=== PATIENT | female | born 1965 | race Caucasian/White ===

== ENCOUNTER 2018-03-19 08:37 | Observation (INO) ==
--- NOTE | 2018-03-12 10:38 | MH ---
cc: Ines Tinsley MD DATE OF ADMISSION: 03/19/2018 ATTENDING PHYSICIAN: Ines Tinsley MD PRINCIPAL DIAGNOSIS: Right breast cancer. HISTORY OF PRESENT ILLNESS: The patient is a 52-year-old female referred by Dr. Bennett for a newly diagnosed multifocal right breast cancer. This was initially noted on a screening mammogram 12/16/2017 at [place] where a density in the upper outer right breast was identified. This was confirmed with a diagnostic right breast mammogram and ultrasound on 12/26/2017. In the 10 o'clock location, 4 cm from the nipple, there was a 1 cm hypoechoic BI-RADS 4 nodule and in the 12 o'clock location, 4 cm from the nipple, there was a 1.5 x 1 cm hypoechoic BI-RADS 4 nodule. Ultrasound-guided core biopsy of both lesions on 01/14/2018 demonstrated well-differentiated invasive ductal carcinoma, and she has opted for bilateral mastectomy with immediate reconstruction. PAST MEDICAL HISTORY: She has no medical problems. PAST SURGICAL HISTORY: Prior surgery included back surgery in 2007 and an open right breast biopsy in 2010. MEDICATIONS: Include Citalopram 20 mg daily. ALLERGIES: SHE HAS NO DRUG ALLERGIES. REPRODUCTIVE HISTORY: G0, P0. Menarche age 13. She continues to menstruate. She does not take hormone replacement therapy. FAMILY HISTORY: Significant for a maternal great aunt who had breast cancer at age 89. SOCIAL HISTORY: She smoked 1 pack of cigarettes daily for approximately 30 years but stopped 1 year ago. REVIEW OF SYSTEMS: A 12-point review of systems is unremarkable. PHYSICAL EXAMINATION: GENERAL: She was 5 feet 7 and weighed 193 pounds with a BMI of 30. Blood pressure was 112/80, temperature 98, heart rate 61, respirations 16. HEENT: Unremarkable. NECK: Supple with no adenopathy or thyromegaly. CHEST: Clear throughout. CARDIAC: Revealed a normal S1 and S2, with no murmurs, rubs or gallops. BREASTS: Revealed asymmetry with the right breast being larger than the left. There were no palpable masses and there was a 3 o'clock right periareolar scar. ABDOMEN: Soft and nontender with no masses. The remainder of her exam was unremarkable. IMPRESSION: Ms. Byrnes has a clinical stage I multifocal right breast cancer and has opted for bilateral mastectomy with immediate reconstruction. She will also require a right axillary sentinel lymph node biopsy to complete staging. She understands the risks and benefits of the procedure and has agreed to proceed. MD SUREKHA Cruz/patricio , 10:20 AM , 10:29 AM
[2018-03-19] MEDS ORDERED: Sodium Chlor 0.9% Inj 500 ML IV.SIG SCH (09:00)
[2018-03-19] MEDS ORDERED: Metoprolol Tartrate 25 MG Tablet PO ONE (09:00)
[2018-03-19] MEDS ORDERED: Chlorhexidine Gluconate 2% 1 Pack (2 Cloths) TOPICAL ONE (09:00)
[2018-03-19] MEDS ORDERED: ceFAZolin 2 GM Premix Inj 2 GM/50 ML PIGGYBACK IV.SIG PRN (09:03)
[2018-03-19] MEDS ORDERED: Bupivacaine/Epinephrine PF Inj 0.5% 30 ML Vial ONE ×2 (10:38→10:40)
[2018-03-19] MEDS ORDERED: Bupivacaine PF 0.5% Inj 30 ML Vial ONE (10:39)
[2018-03-19] MEDS ORDERED: Bupivacaine PF 0.25% Inj 30 ML Vial ONE (10:40)
[2018-03-19] MEDS ORDERED: Lidocaine PF 1% Inj 5 ML Syringe INFILTRATN ONE (12:06)
[2018-03-19] MEDS ORDERED: fentaNYL Citrate Inj 100 MCG/2 ML Ampul ONE (12:17)
--- NOTE | 2018-03-19 14:06 | MP ---
cc: Ines Tinsley MD DATE OF OPERATION: 03/19/2018 DATE OF SURGERY: 03/19/2018 PRINCIPAL DIAGNOSIS:. Right breast cancer, multifocal. PROCEDURE PERFORMED: Bilateral nipple-sparing mastectomy with right axillary sentinel lymph node biopsy and bilateral breast reconstruction. SURGEONS: Dr. Ines Tinsley and Dr. Rogers Connors. ANESTHESIA: General endotracheal. INDICATIONS: The patient is a 52-year-old female with recently diagnosed multifocal right breast cancer. She has opted for bilateral mastectomy with immediate reconstruction and now presents for the procedure. Her lesions are at least 4 cm from the nipple and a nipple-sparing approach was chosen. FINDINGS AT THE TIME OF SURGERY: Two sentinel lymph nodes were identified; #1 had a count of 2752 and #2 had a count of 448. Touch prep was not performed. DESCRIPTION OF PROCEDURE: After informed consent was obtained, and site verification was performed, the patient was brought to the radiology suite where she underwent peritumoral radionucleotide injection and lymphoscintigraphy. She was then brought to the major operating room where she underwent general anesthesia via an LMA device. Both breasts and the right arm were then prepped and draped in sterile fashion. She was given a single dose of IV Ancef and sequential compression hose were placed. Inframammary incisions were marked out and 200 mL of tumescent solution mixed with 30 mL of 0.5% Marcaine with epinephrine were then infiltrated in the plane between the subcutaneous fat and anterior breast fascia circumferentially around both breasts. Approximately 200 mL of solution was used in each breast. The inframammary crease incision was then sharply incised and further sharp dissection was performed in the plane between the anterior breast fascia and subcutaneous fat medially and laterally up to the level of the nipple. Electrocautery was then used to dissect the breast tissue and pectoralis fascia off the pectoralis major muscle up to the level of the clavicle. Further sharp dissection was then performed around the nipple and a small specimen was removed from the undersurface of the nipple and marked with a stitch and this was sent as the new nipple margin as a permanent specimen. Further sharp dissection was then performed medially and laterally in the superior portion of the breast between the anterior breast fascia and subcutaneous fat. The breast was then removed and oriented with 2 sutures anteriorly, 1 short suture superiorly, and 1 long suture laterally. The breast was weighed off the field and sent as a permanent specimen. The upper medial and lateral flaps did contain some additional breast tissue and this was sharply dissected free from the subcutaneous tissue and a stitch was placed on the new margin and these were sent as permanent superior inner and superior lateral specimens. Good hemostasis was obtained with electrocautery. A separate incision was anesthetized at the inferior aspect of the right axillary hairline and this was incised sharply. Both sharp and electrocautery dissection were then performed until the clavipectoral fascia was divided and the level 1 axilla was entered. Two mid level lymph nodes were identified close to the chest wall and each was circumferentially dissected free from surrounding structures using the Harmonic scalpel with the counts as noted. Some adjacent axillary tissue was sent as a permanent specimen. Good hemostasis was noted in the axilla and the wound was closed using interrupted 3-0 Vicryl subcutaneous sutures and a 4-0 Monocryl subcuticular suture. The background count in the axilla was 7. Reconstruction was then performed by Dr. Connors and will be recorded on a separate dictation. MD SUREKHA Cruz/anabela , 01:46 PM , 01:55 PM
[2018-03-19] MEDS ORDERED: Morphine Sulfate Inj 8 MG/ML Vial ONE (15:22)
[2018-03-19] MEDS ORDERED: HYDROmorphone PF Inj 2 MG/ML Vial ONE (15:40)
--- NOTE | 2018-03-19 15:42 | P.OP ---
Preoperative Diagnosis: Right Breast cancer Postoperative Diagnosis: Right Breast cancer Date of procedure: 03/19/18 Procedure: 1 Right Nipple sparing mastectomy and Lymph node sampling - by Dr. Tinsley 2 Left Nipple sparing mastectomy - by Dr. Connors 3 Bilateral Breast reconstruction with Tissue Expanders and Allomax grafts - by Dr. Connors Implants: Allergan Tissue Expanders [id number] (nominal capacity 400 cc)- RIght side SN [id number], Left side [id number] Allomax tissue grafts 8x16 cm, [id number] Right side SN [id number], Left side SN [id number] Anesthesia: GETA Surgeon: Rogers Connors MD Estimated blood loss (mL): 50 Operation and Findings: Indications: Right breast cancer - patient desiring bilateral mastectomies - nipple sparing or areola sparing and immediate tissue gas check pad maker stage I reconstruction. Patient has undergone extensive discussion about recon options and pros, cons, risks, possible complications including the [facility] informed consent brochure. She is willing to go ahead with tissue gas check pad maker and Allomax immediate recon on both sides. Does not want any muscle flaps or autologous recon at this time. She understands that there are risks of bleeding, hematoma, seroma, flap necrosis, wound healing problems, wound dehiscence, infection, loss of reconstruction prosthesis if there is infection or exposure and multiple future surgeries or other interventions may be necessary. There may be asymmetry between two sides due to multiple factors, there may be loss of reconstruction on one side or both sides. Future reconstruction efforts may depend upon the tissue and health status in future - including any radiation therapy, chemotherapy etc. There may be lymphatic blockage / lymphedema on one or both sides. Chronic pain, scarring, uneven surface appearances, reduced / restricted function of her chest wall muscles etc. Flap numbness and variations of thickness / vascularity possible and may persist. Hypertrophic scar, keloid formation etc possible. Other possible general risks including those with anesthesia, medications, smoking and other medical issues also accepted by patient. Second stage recon with implants explained for future, expanders and implants shown, both saline, silicone, smooth, textured - also round, tear drops, different profiles and sizes explained. Patient also was shown previous patients' photos for comparison and understanding various differences and outcomes etc. She is willing to go ahead with the stage I tissue gas check pad maker and Allomax reconstruction. Procedure: Preoperative markings of patient's existing IMF was done in holding area, the surgery for Right breast is possible to be nipple sparing as per Dr. Tinsley and the Left prophylactic side also is Nipple sparing. Patient was brought to the OR, anesthesia started, time out completed , prep and drape done, antibiotics given. Right side surgery will be dictated by Dr. Tinsley for her part. Left side breast was injected with tumescent mix of 30 cc Bupivacaine in 250 cc Saline - total 240 cc used through surgery. Inframammary crease incision approx 4 1/2 inches long made - flap elevated in fatty plane up to the nipple base, nipple saved and base dissected sharply - a sample of tissue taken for permanent section exam, nipple position suture marked on the breast tissue, flap dissection completed over the entire breast mound. Minimal bleeding encountered. Breast lower pole lifted off the IMF and dissected up - exposing the pectoralis muscle borders and intercostal space clearly. Tumescent mix used between the breast base and pectoralis fascia. Dissection continued, preserving the pectoralis fascia and releasing the breast mound along the borders. Breast tissue specimen also suture marked at superior 12 o'clock position. Tissue weight 515 grams. (The right side specimen weighed 335 grams.) Hemostasis completed and the breast pockets and chest wall flaps irrigated and washed clean with saline on both sides. Subpectoral pockets created for expanders. releasing the lower lateral border of the pectoralis, preserving the most medial aspects and inframammary fold position. Allomax tissue grafts hydrated, treated with Gentamicin and sutured in position, smooth side down, to the anterior axillary line and IMF levels and rounding off the outer lower corners. Allomax grafts also fenestrated in lower half to allow drainage. Trefisan tissue expanders 400cc nominal volumes used - rinsed and treated with gentamicin as well. Air evacuated and expanders placed in the subpectoral position, Allomax free edges tacked to the lateral border of pectoralis muscles over the expanders. Expanders filled with sterile saline using a three way no touch technic. Final fill 300 cc on each side. Camp Counselor position and projection were fairly well matched. MARIA VICTORIA drains inserted through separate stab incisions, Breast flaps smoothed over the expanders and closed in two layers - vicryls and prolene. Drain tubes secured with Nylon sutures. Drains activated with the breast flaps being adjusted for position over the expanders. Flap color remained uniformly good on both sides, minimal bruising noted at the end of surgery. Sterile dressing applied after clean up. Intraoperative blood loss less than 15-20 cc for the Left mastectomy and bilateral recon part, overall blood loss less than 50 cc estimated. Patient remained stable. No complications.
[2018-03-19] MEDS: HYDROmorphone PF Inj 2 MG/ML Vial IV.PUSH PRN ×2 (18:33→23:04)
[2018-03-19] MEDS ORDERED: LORazepam 0.5 MG Tablet PO PRN (18:56)
[2018-03-20] MEDS: HYDROmorphone PF Inj 2 MG/ML Vial IV.PUSH PRN ×4 (03:15→16:19)
[2018-03-20] MEDS: Citalopram 20 MG Tablet PO SCH (08:08)
--- NOTE | 2018-03-20 09:14 | P.PNPLA ---
Subjective Remarks: Patient doing well post op - no fever, vitals good has not been out of bed yet Pain moderate, ok with dilaudid Breast flaps soft, no hematoma, minimal bruising, no blisters, drains ok. To plan DC today when seen by Dr. Tinsley. Will see patient back in clinic on Saturday next week. Rx Dilaudid and Keflex. No need to change dressing at home. Keep dry. Objective Vital Signs: Vital Signs - 24 hr 03/19/18 09:37 03/19/18 15:03 03/19/18 15:20 Temperature 97.8 F 98.3 F Pulse Rate 60 78 73 Respiratory Rate 15 14 15 Blood Pressure 113/81 135/82 124/82 Pulse Oximetry 96 100 03/19/18 15:35 03/19/18 16:18 03/19/18 16:55 Temperature 98.1 F Pulse Rate 74 83 Respiratory Rate 16 15 16 Blood Pressure 122/82 127/88 Pulse Oximetry 100 100 03/19/18 17:57 03/19/18 20:00 03/20/18 00:00 Temperature 96.2 F L 98.1 F 97.7 F Pulse Rate 80 83 78 Respiratory Rate 20 20 20 Blood Pressure 125/81 129/80 116/70 Pulse Oximetry 100 99 97 03/20/18 03:14 03/20/18 04:00 Temperature 96.9 F L Pulse Rate 71 Respiratory Rate 6 L 20 Blood Pressure 117/88 Pulse Oximetry 100 Intake & Output 03/18/18 03/19/18 03/20/18 03/21/18 06:59 06:59 06:59 06:59 Intake Total 4110 / 4110 Output Total 860 / 860 Balance 3250 / 3250 Weight 91.1 kg
--- NOTE | 2018-03-20 16:44 | P.PN ---
Subjective Interval history: Resting but still significant issue with pain control requiring IV dilaudid. Physical Exam Vital signs: Vital Signs 03/19/18 16:55 03/19/18 17:57 03/19/18 20:00 Temperature 98.1 F 96.2 F L 98.1 F Pulse Rate 83 80 83 Respiratory Rate 16 20 20 Blood Pressure 127/88 125/81 129/80 Pulse Oximetry 100 100 99 03/20/18 00:00 03/20/18 03:14 03/20/18 04:00 Temperature 97.7 F 96.9 F L Pulse Rate 78 71 Respiratory Rate 20 6 L 20 Blood Pressure 116/70 117/88 Pulse Oximetry 97 100 03/20/18 08:00 03/20/18 12:00 Temperature 97.4 F L 97.7 F Pulse Rate 70 70 Respiratory Rate 20 20 Blood Pressure 125/76 141/72 H Pulse Oximetry 99 Intake & Output 03/19/18 03/20/18 03/20/18 18:59 06:59 18:59 Intake Total 3450 / 3450 660 / 660 Output Total 770 / 770 90 / 90 45 / 45 Balance 2680 / 2680 570 / 570 -45 / -45 Weight 91.2 kg 91.1 kg Intake: IV 1650 / 1650 Ofirmev Inj 1,000 mg In 100 ml 100 / 100 @ 0 mls/hr IV.SIG .STK-MED ONE Rx#:[id number] LR 1000 mL Inj 1,000 ML @ 30 1000 / 1000 mls/hr IV.SIG .Q24H [facility] Rx#: [id number] NS Inj 500 ML @ 30 mls/hr IV. 500 / 500 SIG .Q10H [facility] Rx#:[id number] Ancef 2 GM Premix Inj 2 gm In 50 / 50 50 ml @ 100 mls/hr IV.SIG [employer] PRN Rx#:[id number] Oral 660 / 660 Anesthesia Amount 1800 / 1800 Output: Estimated Blood Loss 50 / 50 Urine Amount (Catheter) 600 / 600 Indwelling Urethral Catheter 600 / 600 Wound Drainage 120 / 120 90 / 90 45 / 45 # 1 Right Breast MARIA VICTORIA Drain 80 / 80 50 / 50 30 / 30 Left Breast MARIA VICTORIA Drain 40 / 40 40 / 40 15 / 15 Other: # Voids 825 2 Weight On Admission 130.181 kg Narrative: Drain output 130cc right, 80 cc left. Wound flaps clean and viable. No nipple ischemia. No infection. - Urinary Catheter Management Indwelling Urethral Catheter Cath placed during this visit: yes, but has since been removed by the nurse Reason for continuing: Acute urinary retention Insertion date: 03/19/18 Insertion time: 12:05 Removal date: 03/20/18 Removal time: 12:00 Assessment and Plan - Plan Anticipate discharge tomorrow.
[2018-03-20 20:51] VITALS: RESP 18
[2018-03-21] MEDS: Citalopram 20 MG Tablet PO SCH (08:22)
[2018-03-21 09:15] VITALS: BP 107/60; PULSE 80; TEMP 98.9; O2SAT 94
--- NOTE | 2018-03-21 09:26 | P.PN ---
Subjective Interval history: Pain control improved on oral analgesics. Ready for discharge. Physical Exam Vital signs: Vital Signs 03/20/18 12:00 03/20/18 16:00 03/20/18 20:00 Temperature 97.7 F 98.7 F 100.3 F H Pulse Rate 70 95 H 105 H Respiratory Rate 20 20 18 Blood Pressure 141/72 H 133/72 157/80 H Pulse Oximetry 91 L 88 L 03/21/18 01:31 03/21/18 06:33 03/21/18 08:00 Temperature 100.3 F H 99.1 F 98.9 F Pulse Rate 83 80 Respiratory Rate 18 18 Blood Pressure 120/61 107/60 Pulse Oximetry 95 92 L 94 L Intake & Output 03/20/18 03/21/18 03/21/18 18:59 06:59 18:59 Intake Total 1280 / 1280 100 / 100 Output Total 45 / 45 75 / 75 Balance 1235 / 1235 25 / 25 Weight 89.8 kg Intake: Oral 1280 / 1280 100 / 100 Output: Wound Drainage 45 / 45 75 / 75 # 1 Right Breast MARIA VICTORIA Drain 30 / 30 30 / 30 Left Breast MARIA VICTORIA Drain 15 / 15 45 / 45 Other: # Voids 2 2 Date of Last Bowel Movement 03/18/18 # Bowel Movements 0 Narrative: Wound flaps viable with no ischemia ,infection, or seroma. - Urinary Catheter Management Indwelling Urethral Catheter Cath placed during this visit: yes, but has since been removed by the nurse Reason for continuing: Acute urinary retention Insertion date: 03/19/18 Insertion time: 12:05 Removal date: 03/20/18 Removal time: 12:00 Assessment and Plan - Plan Discharge home today. Followup next Saturday. - Attending Attestation Cecilio mcnulty seen and examined patient and agree with discharge home today.
== END 2018-03-21 10:52 | disposition home or self-care (01) ==
LOC: PHSDC 08:37 → PH3 08:37
PROVIDERS: ADMIT Surgery; ATTEND Surgery